=== PATIENT | male | born 1995 | race Caucasian/White ===

== ENCOUNTER 2020-12-03 11:37 | Emergency (ER) | payer OTHER ==
[~2020-12-03] VITALS: Ht 172.7 cm; Wt 85.3 kg
[2020-12-03 11:37] VITALS: BP 132/72
--- NOTE | 2020-12-03 13:20 | REP ---
INDICATION: pain since june COMPARISON: None. TECHNIQUE: There are five views. FINDINGS: There is no fracture or dislocation. Mineralization and joint spaces are normal. There are no calcifications or foreign bodies. There is no effusion IMPRESSION: Essentially negative left knee plain film study. Consider MRI for follow-up. <Electronically signed by Jose Wong > 12/03/20 [id number]
[2020-12-03] MEDS ORDERED: KETOROLAC 30 MG/ML 1ML VIAL IM ONE (13:40)
== END 2020-12-03 14:06 | disposition home or self-care (01) ==
LOC: M ED 11:37
DX: S83.412A Sprain of medial collateral ligament of left knee, initial encounter (principal); Y92.138 Other place on military base as the place of occurrence of the external cause; Y93.02 Activity, running; Y99.1 Military activity
CPT/HCPCS: 73564; 96372; 99284; J1885

== ENCOUNTER 2021-01-20 16:34 | Emergency (ER) | payer OTHER ==
[~2021-01-20] VITALS: Ht 172.7 cm; Wt 83.8 kg
[2021-01-20 18:02] LABS: AMPHETAMINES LEVEL URINE NEGATIVE (NEGATIVE); BARBITURATES URINE NEGATIVE (NEGATIVE); BENZODIAZEPINES URINE NEGATIVE (NEGATIVE); CANNABINOIDS URINE NEGATIVE (NEGATIVE); COCAINE METABOLITE URINE NEGATIVE (NEGATIVE); METHADONE URINE NEGATIVE (NEGATIVE); OPIATES URINE NEGATIVE (NEGATIVE); PHENCYCLIDINE URINE NEGATIVE (NEGATIVE)
[2021-01-20 18:04] LABS: HEMATOCRIT 46.5 % (42.0-52.0); HEMOGLOBIN 16.1 g/dl (13.5-17.5); MEAN CORPUSCULAR HEMOGLOBIN 29.9 pg (27.0-33.0); MEAN CORPUSCULAR HGB CONC 34.6 g/dl (32.0-36.5); MEAN CORPUSCULAR VOLUME 86.4 fl (80.0-96.0); PLATELET COUNT, AUTOMATED 267 10^3/uL (150-450); RED BLOOD COUNT 5.38 10^6/uL (4.30-6.10); WHITE BLOOD COUNT 7.1 10^3/uL (4.0-10.0)
[2021-01-20 18:34] LABS: ACETAMINOPHEN LEVEL < 2.0 UG/ML (10.0-30.0); BLOOD UREA NITROGEN 13 MG/DL (7-18); CARBON DIOXIDE LEVEL 29 MEQ/L (21-32); CHLORIDE LEVEL 105 MEQ/L (98-107); CREATININE FOR GFR 1.11 MG/DL (0.70-1.30); ETHYL ALCOHOL (ETHANOL) 0.003 % (0.000-0.010); GLOMERULAR FILTRATION RATE > 60.0 (>60); GLUCOSE, FASTING 100 MG/DL (70-100); SALICYLATE LEVEL < 1.7 MG/DL (5.0-30.0); SODIUM LEVEL 140 MEQ/L (136-145)
[2021-01-20 19:09] LABS: ALBUMIN 4.3 GM/DL (3.2-5.2); ALT/SGPT 17 U/L (12-78); BILIRUBIN,DIRECT 0.4 MG/DL (0.0-0.2); BILIRUBIN,TOTAL 2.9 MG/DL (0.2-1.0); TOTAL PROTEIN 7.6 GM/DL (6.4-8.2)
[2021-01-20 21:20] LABS: RSV AMPLIFICATION NEGATIVE (NEGATIVE)
--- NOTE | 2021-01-21 07:51 | ECGEPIP ---
[facility] - ED Test Date: 2021-01-20 Pat Name: RASHIDA KIMBALL Department: Room: - Gender: Male Dumpster Driver: JIM : 1995 Requested By: TIFFANY Cardenas Order Number: [id number] Reading MD: Carmina Yoder Measurements Intervals [place] Rate: 86 P: 69 KS: 140 QRS: 23 QRSD: 88 T: 41 QT: 356 QTc: 426 Interpretive Statements Normal sinus rhythm No prior Electronically Signed on 01-21-2021 7:51:44 EDT by Carmina Yoder
[2021-01-21 10:08] VITALS: BP 132/83
== END 2021-01-21 10:12 ==
LOC: M ED 16:34
DX: R45.851 Suicidal ideations (principal); F33.9 Major depressive disorder, recurrent, unspecified; Z91.5 Personal history of self-harm; Z88.0 Allergy status to penicillin; F17.210 Nicotine dependence, cigarettes, uncomplicated

== ENCOUNTER 2021-05-14 11:32 | Emergency (ER) | payer OTHER ==
[~2021-05-14] VITALS: Ht 172.7 cm; Wt 83.2 kg
[2021-05-14 13:41] LABS: BASO % 0.5 % (0.0-1.0); EOS # 0.2 10^3/uL (0.0-0.5); EOS % 2.2 % (0.0-3.0); HEMATOCRIT 43.6 % (42.0-52.0); HEMOGLOBIN 15.3 g/dl (13.5-17.5); LYMPH % 25.4 % (24.0-44.0); MEAN CORPUSCULAR HEMOGLOBIN 29.7 pg (27.0-33.0); MEAN CORPUSCULAR HGB CONC 35.1 g/dl (32.0-36.5); MEAN CORPUSCULAR VOLUME 84.5 fl (80.0-96.0); MONO # 0.6 10^3/uL (0.0-0.8); MONO % 7.9 % (2.0-8.0); NEUTROPHILS % 63.7 % (36.0-66.0); PLATELET COUNT, AUTOMATED 271 10^3/uL (150-450); RED BLOOD COUNT 5.16 10^6/uL (4.30-6.10); WHITE BLOOD COUNT 7.8 10^3/uL (4.0-10.0)
[2021-05-14 14:04] LABS: CK-MB VALUE MASS < 1.0 NG/ML (<3.6); CPK CREATINE PHOSPHOKINASE 48 U/L (39-308); MB/CK RELATIVE INDEX 2.08 (< OR =4)
[2021-05-14 14:12] LABS: ALT/SGPT 19 U/L (12-78); BILIRUBIN,DIRECT 0.4 MG/DL (0.0-0.2); BLOOD UREA NITROGEN 5 MG/DL (7-18); CALCIUM LEVEL 9.3 MG/DL (8.5-10.1); CARBON DIOXIDE LEVEL 27 MEQ/L (21-32); CHLORIDE LEVEL 109 MEQ/L (98-107); FREE T4 1.46 NG/DL (0.76-1.46); GLOMERULAR FILTRATION RATE > 60.0 (>60); GLUCOSE, FASTING 99 MG/DL (70-100); LIPASE 140 U/L (73-393); NT-PRO BNP 30 PG/ML (<125); POTASSIUM SERUM 3.6 MEQ/L (3.5-5.1); SODIUM LEVEL 141 MEQ/L (136-145); TOTAL PROTEIN 6.9 GM/DL (6.4-8.2)
[2021-05-14 15:27] VITALS: BP 114/60
== END 2021-05-14 15:51 | disposition home or self-care (01) ==
LOC: M ED 11:32
DX: J20.8 Acute bronchitis due to other specified organisms (principal); Z88.0 Allergy status to penicillin